=== PATIENT | male | born 1990 | race Caucasian/White ===

== ENCOUNTER 2017-03-14 23:50 | Emergency (ER) | payer BC ==
[~2017-03-14 23:50] MED LIST: ALBUTEROL17 GM INH; AVELOX400 M1 PO; BENTYL20 MG PO; CIPRO PO; DICLOFENAC PO; DOXYCYCLINE HY100 M3 PO; FAMOTIDINE PO; MECLIZINE HCL25 M1 PO; NABUMETONE PO; NO MEDICATIONS; PERCOCET5/325 PO; PHENERGAN PO; PHENERGAN PR; PHENERGAN25 M1 PO; PRILOSEC PO; PROMETHAZINE D118 ML PO; SKELAXIN PO; VICODIN 5/500 T1 TAB PO; ZITHROMAX PO; ZITHROMAX1 G/PKT PO; ZOFRAN ODT4 MG PO; ZOFRAN PO; ZYRTEC10 M2 PO; [UNRECOGNIZED DRUG - OTHER]
[2017-03-15] MEDS ORDERED: NORCO 7.5-3251 EACH PO
[2017-03-15] MEDS ORDERED: PYRIDIUM100 MG PO (00:01)
[2017-03-15 00:31] LABS: URINE SOURCE CLEAN CATCH
[2017-03-15 00:33] LABS: URINE APPEARANCE CLEAR; URINE BILIRUBIN NEG (NEG); URINE BLOOD NEG (NEG); URINE COLOR YELLOW; URINE GLUCOSE NEG (NORM); URINE KETONE TRACE (NEG); URINE LEUKOCYTE ESTERASE NEG (NEG); URINE NITRATE NEG (NEG); URINE PROTEIN TRACE (NEG); URINE SPECIFIC GRAVITY 1.025 (1.003-1.035)
[2017-03-15 00:37] LABS: MICRO INDICATED? NO
== END 2017-03-15 00:55 | disposition home or self-care (01) ==
LOC: SED 23:50
PROVIDERS: Emergency Medicine
DX: R39.15 Urgency of urination (principal)
CPT/HCPCS: 81003; 99283